=== PATIENT | male | born 1995 | race Caucasian/White ===

== ENCOUNTER → 2017-05-21 | Day surgery (SDC) | payer OTHER ==
[~2017-05-21] VITALS: Ht 182.9 cm; Wt 55.4 kg
[~2017-05-21] MED LIST: CHLORHEXIDINE GLUCONATE 2 % 1 PACK (2 CLOTHS) TOPICAL PRN; DO NOT ADM ANY ANTICOAGULANT DRUGS PRN; LACTATED RINGER'S 1000 ML IV PRN; LIDOCAINE HCL 1% PF 5 ML AMPULE OTHER ONE; METOPROLOL TARTRATE 25 MG TAB PO PRN; MIDAZOLAM HCL 2 MG/2 ML VIAL IV ONE; ONDANSETRON HCL 4 MG/2 ML VIAL IV PRN; PERC5TAB12 PO; POVIDONE IODINE 5% (ANTISEPSIS KIT) 4 APPLICATIONS EACH NARE PRN; PROPOFOL 200 MG/20 ML AMP IV ONE; SODIUM CHLORID 0.9% 500 ML IV PRN; ceFAZolin 1,000 MG/NS 100 ML IV SCH
--- NOTE | 2017-05-21 06:29 | RADRPT ---
EXAM DATE/TIME: 05/21/2017 06:20 [place] COMPARISON: No previous studies available for comparison. INDICATIONS : Preop lithotripsy. MEDICAL HISTORY : None. SURGICAL HISTORY : None. ENCOUNTER: Initial ACUITY: 1 day PAIN SCORE: 0/10 LOCATION: Bilateral abdomen FINDINGS: Supine view of the abdomen was performed. In the right upper quadrant there is a 12 x 9 mm calcific nodule renal stone versus gallstone. 7 x 2 mm calcification overlies lower pole the right kidney . T he abdominal bowel gas pattern is normal. No abnormal masses, or organomegaly is seen. The osseous structures are unremarkable. CONCLUSION: 2 right-sided calcifications as described above. Bowel gas pattern is unremarkable. David Casanova MD on May 21, 2017 at 6:26 Board Certified Radiologist. This report was verified electronically.
[2017-05-21 06:53] LABS: AUTOMATED NEUTROPHIL # 4.7 TH/MM3 (1.8-7.7); BASOPHIL # 0.1 TH/MM3 (0-0.2); BASOPHIL % 0.8 % (0.0-2.0); EOSINOPHIL # 0.1 TH/MM3 (0-0.4); EOSINOPHIL % 1.5 % (0.0-4.0); HEMATOCRIT 44.6 % (39.0-51.0); HEMO FLAGS DIFF FINAL; LYMPH % 34.7 % (9.0-44.0); LYMPHOCYTE # 2.9 TH/MM3 (1.0-4.8); MEAN CORPUSCULAR HEMOGLOBIN 30.3 PG (27.0-34.0); MEAN CORPUSCULAR HGB CONC 33.7 % (32.0-36.0); MONO % 6.9 % (0.0-8.0); NEUT % 56.1 % (16.0-70.0); PLATELET COUNT 209 TH/MM3 (150-450); RED BLOOD COUNT 4.95 MIL/MM3 (4.50-5.90); RED CELL DISTRIBUTION WIDTH 13.7 % (11.6-17.2); WHITE BLOOD COUNT 8.3 TH/MM3 (4.0-11.0)
--- NOTE | 2017-05-21 08:55 | PD.OP ---
Operative Report Date of Surgery: May 21, 2017 Preoperative Diagnosis: Right renal calculi Postoperative Diagnosis: Same Procedure: Right extracorporeal shockwave lithotripsy Anesthesia: TIVA Surgeon: Kyree Byrnes Dietitian Assistant(s): None Resident Surgeon: None Operation and Findings: 21 year-old male with history of right sided renal calculi. Patient found to have 2 large stones within the right kidney one measuring up to 1 cm in size. The other stone was found to be approximately 1.5 cm in size. This stone was located in the lower pole and was only partially visualized on x-ray. Risk and benefits were discussed with both the patient and his mother at the bedside preoperatively and they were willing to proceed. Patient is brought to the operating room and identified by myself as Dustin Bowers. He was placed in the supine position on the operating table, received preprocedure antibiotics TIVA anesthesia was administered. The stone was localized under fluoroscopic and ultrasound imaging guidance. The 1 cm stone was initially treated which was located near the UPJ. Good fragmentation of the stone was visualized. The stone in the lower pole was then visualized and approximately 1500 shocks were then directed at this lower pole stone. Good fragmentation of the stone was also visualized. The patient tolerated the procedure well and was awoken and transferred to recovery in stable condition. He'll follow-up in a few weeks in the office and obtain a CT scan prior to his visit. Kyree Byrnes DO May 21, 2017 08:55
[2017-05-21 11:07] VITALS: BP 121/87; PULSE 55; RESP 20; TEMP 97.4; O2SAT 100
== END | disposition home or self-care (01) ==
LOC: HSDC 05:44
PROVIDERS: ATTEND Urology
DX: N20.0 Calculus of kidney (principal)
CPT/HCPCS: 00873; 50590; 74000; 85025; J0690; J2250; J3010; J7120

== ENCOUNTER 2017-05-27 00:33 | Inpatient (IN) | payer OTHER ==
[~2017-05-27] VITALS: Ht 180.3 cm; Wt 55.1 kg
[2017-05-27] VITALS: BP 121/74; PULSE 64; RESP 17; TEMP 97.8; O2SAT 99
[~2017-05-27 00:33] MED LIST changes: -CHLORHEXIDINE GLUCONATE 2 % 1 PACK (2 CLOTHS) TOPICAL PRN; -DO NOT ADM ANY ANTICOAGULANT DRUGS PRN; -LACTATED RINGER'S 1000 ML IV PRN; -LIDOCAINE HCL 1% PF 5 ML AMPULE OTHER ONE; -METOPROLOL TARTRATE 25 MG TAB PO PRN; -MIDAZOLAM HCL 2 MG/2 ML VIAL IV ONE; -ONDANSETRON HCL 4 MG/2 ML VIAL IV PRN; -POVIDONE IODINE 5% (ANTISEPSIS KIT) 4 APPLICATIONS EACH NARE PRN; -PROPOFOL 200 MG/20 ML AMP IV ONE; -SODIUM CHLORID 0.9% 500 ML IV PRN; -ceFAZolin 1,000 MG/NS 100 ML IV SCH
[2017-05-27] MEDS ORDERED: LACTULOSE SYRUP 20 GM/30 ML CUP PO PRN (01:30)
[2017-05-27] MEDS ORDERED: SENNOSIDES 8.6 MG TAB PO PRN (01:30)
[2017-05-27] MEDS ORDERED: ACETAMINOPHEN 325 MG TAB PO PRN (01:30)
[2017-05-27] MEDS ORDERED: SODIUM CHLORIDE 0.9% FLUSH 10 ML FLUSH IV FLUSH PRN (01:30)
[2017-05-27] MEDS ORDERED: MAGNESIUM HYDROXIDE SUSP 30 ML CUP PO PRN (01:30)
[2017-05-27] MEDS ORDERED: NALOXONE HCL 0.4 MG/ML AMP IV PUSH PRN (01:30)
[2017-05-27] MEDS ORDERED: BISACODYL 10 MG SUPP RECTAL PRN (01:30)
[2017-05-27] MEDS ORDERED: MORPHINE SULFATE 2 MG/ML INJ IV PUSH PRN (01:30)
[2017-05-27] MEDS: ONDANSETRON HCL 4 MG/2 ML VIAL IVP PRN ×4 (01:43→20:57)
[2017-05-27] MEDS: SODIUM CHLOR 0.45% 1000 ML INJ 1,000 ML IV SCH ×2 (01:49→14:37)
--- NOTE | 2017-05-27 04:08 | HHI.HP ---
[facility] Primary Care Physician Quinten Dodson M.D. Admission Diagnosis Diagnoses: Travel History International Travel<30 Days: No Contact w/Intl Traveler <30 Da: No Traveled to Known Affected Are: No History of Present Illness 21-year-old male with a past medical history significant for lithotripsy with Dr. Byrnes 6 days ago presents to the emergency department for evaluation of nausea, vomiting and abdominal and right flank pain. The patient states that since his lithotripsy he has had intractable nausea/vomiting that has been unresponsive to Zofran. He was prescribed Percocet for his pain however has not been able to keep any of his pain medication down. He denies any fever/ chills. He continues to endorse burning with urination. CT of the abdomen/ pelvis revealed right-sided hydronephrosis with a 2 cm stone in the distal right ureter. The right ureter is dilated down to the ureterovesical junction. There is a dominant elongated calcification in the distal right ureter measuring 2.2 cm. Patient has a leukocytosis of 13.8. Creatinine 1.80, total bilirubin 4.3. Review of Systems Denies fever or chills Denies blurry vision, otorrhea, rhinorrhea Denies sore throat and cough No chest pain, palpitations, shortness of breath No abdominal pain Positive right flank pain Nausea/vomiting. Denies diarrhea or constipation. Denies muscle pain/weakness No rashes Past Family Social History Past Medical History History of nephrolithiasis Past Surgical History Lithotripsy Reported Medications Reported Meds & Active Scripts Active Percocet (Oxycodone-Acetaminophen) 5-325 mg Tab 1-2 Tab PO Q6H PRN Allergies: Coded Allergies: No Known Allergies (Unverified Allergy, Unknown, 05/21/17) Family History No family history of diabetes or coronary artery disease. Social History Quit smoking on Friday. Smoked for approximately 9 years as much as 1 pack per day. Denies alcohol. Positive marijuana. Denies other illicit drugs. Physical Exam Vital Signs Vital Signs Date Time Temp Pulse Resp B/P (MAP) Pulse Ox O2 Delivery O2 Flow Rate FiO2 05/27/17 01:50 20 05/27/17 00:00 97.8 64 17 121/74 90 99 Physical Exam GENERAL: male lying in bed SKIN: No rashes, ecchymoses or lesions. Cool and dry. HEAD: Atraumatic. Normocephalic. No temporal or scalp tenderness. EYES: Pupils equal round and reactive. Extraocular motions intact. No scleral icterus. No injection or drainage. ENT: Nose without bleeding, purulent drainage or septal hematoma. Throat without erythema, tonsillar hypertrophy or exudate. Uvula midline. Airway patent. NECK: Trachea midline. No JVD or lymphadenopathy. Supple, nontender, no meningeal signs. CARDIOVASCULAR: Regular rate and rhythm without murmurs, gallops, or rubs. RESPIRATORY: Clear to auscultation. Breath sounds equal bilaterally. No wheezes , rales, or rhonchi. GASTROINTESTINAL: Abdomen soft, non-tender, nondistended. No hepato-splenomegaly , or palpable masses. No guarding. : Positive right CVA tenderness MUSCULOSKELETAL: Extremities without clubbing, cyanosis, or edema. No joint tenderness, effusion, or edema noted. No calf tenderness. Negative Homans sign bilaterally. NEUROLOGICAL: Awake and alert. Cranial nerves II through XII intact. Motor and sensory grossly within normal limits. Normal speech. Caprini VTE Risk Assessment Caprini VTE Risk Assessment: No/Low Risk (score <= 1) Caprini Risk Assessment Model Point Value = 1 Point Value = 2 Point Value = 3 Point Value = 5 Age 41-60 Minor surgery BMI > 25 kg/m2 Swollen legs Varicose veins or History of unexplained or recurrent spontaneous Oral contraceptives or hormone replacement Sepsis (< 1 month) Serious lung disease, including pneumonia (< 1 month) Abnormal pulmonary function Acute myocardial infarction Congestive heart failure (< 1 month) History of inflammatory bowel disease Medical patient at bed rest Age 61-74 Arthroscopic surgery Major open surgery (> 45 min) Laparoscopic surgery (> 45 min) Malignancy Confined to bed (> 72 hours) Immobilizing plaster cast Central venous access Age >= 75 History of VTE Family history of VTE Factor V Leiden Prothrombin [id number] Lupus anticoagulant Anticardiolipin antibodies Elevated serum homocysteine Heparin-induced thrombocytopenia Other congenital or acquired thrombophilia Stroke (< 1 month) Elective arthroplasty Hip, pelvis, or leg fracture Acute spinal cord injury (< 1 month) Prophylaxis Regimen Total Risk Factor Score Risk Level Prophylaxis Regimen 0-1 Low Early ambulation 2 Moderate Order ONE of the following: *Sequential Compression Device (SCD) *Heparin 5000 units SQ BID 3-4 Higher Order ONE of the following medications: *Heparin 5000 units SQ TID *Enoxaparin/Lovenox 40 mg SQ daily (WT < 150 kg, CrCl > 30 mL/min) *Enoxaparin/Lovenox 30 mg SQ daily (WT < 150 kg, CrCl > 10-29 mL/min) *Enoxaparin/Lovenox 30 mg SQ BID (WT < 150 kg, CrCl > 30 mL/min) AND/OR *Sequential Compression Device (SCD) 5 or more Highest Order ONE of the following medications: *Heparin 5000 units SQ TID (Preferred with Epidurals) *Enoxaparin/Lovenox 40 mg SQ daily (WT < 150 kg, CrCl > 30 mL/min) *Enoxaparin/Lovenox 30 mg SQ daily (WT < 150 kg, CrCl > 10-29 mL/min) *Enoxaparin/Lovenox 30 mg SQ BID (WT < 150 kg, CrCl > 30 mL/min) AND *Sequential Compression Device (SCD) Assessment and Plan Assessment and Plan 21-year-old male status post lithotripsy 6 days ago presents with intractable nausea/vomiting, right hydronephrosis with dilated right ureter. 1. Intractable nausea/vomiting Currently controlled with IV Zofran 2. Hydronephrosis secondary to ureter obstruction Pain control with IV Morphine Urology consulted, appreciate assistance Dr. Rocha to see patient for probable stenting later today 3. MEG Creatinine 1.80, no baseline labs for comparison IV fluid hydration Monitor am BMP FEN NPO NS at 75 cc/hr SCDs Physician Certification 2 Midnight Certification Type: Admission for Inpatient Services Order for Inpatient Services The services are ordered in accordance with Medicare regulations or non- Medicare payer requirements, as applicable. In the case of services not specified as inpatient-only, they are appropriately provided as inpatient services in accordance with the 2-midnight benchmark. Estimated LOS (days): 2 2 days is the estimated time the patient will need to remain in the hospital, assuming treatment plan goals are met and no additional complications. Post-Hospital Plan: Not yet determined Celina Prather MD May 27, 2017 04:08
[2017-05-27 04:25] LABS: AUTOMATED NEUTROPHIL # 7.6 TH/MM3 (1.8-7.7); BASOPHIL % 0.2 % (0.0-2.0); EOSINOPHIL % 0.3 % (0.0-4.0); HEMATOCRIT 36.6 % (39.0-51.0); HEMO FLAGS DIFF FINAL; LYMPH % 21.5 % (9.0-44.0); LYMPHOCYTE # 2.5 TH/MM3 (1.0-4.8); MEAN CELL VOLUME 86.5 FL (80.0-100.0); MEAN CORPUSCULAR HEMOGLOBIN 30.2 PG (27.0-34.0); MONO % 12.8 % (0.0-8.0); NEUT % 65.2 % (16.0-70.0); PLATELET COUNT 181 TH/MM3 (150-450); RED BLOOD COUNT 4.23 MIL/MM3 (4.50-5.90); RED CELL DISTRIBUTION WIDTH 13.2 % (11.6-17.2); WHITE BLOOD COUNT 11.6 TH/MM3 (4.0-11.0)
[2017-05-27 04:47] LABS: ALT (GPT) 11 U/L (12-78); ANION GAP 11 MEQ/L (5-15); AST (GOT) 10 U/L (15-37); BICARBONATE 24.9 MEQ/L (21.0-32.0); BLOOD UREA NITROGEN 18 MG/DL (7-18); CHLORIDE 101 MEQ/L (98-107); GLOMERULAR FILTRATION RATE 61 ML/MIN (>89); POTASSIUM 3.4 MEQ/L (3.5-5.1); SODIUM (NA) 137 MEQ/L (136-145)
[2017-05-27 04:49] LABS: ALKALINE PHOSPHATASE 51 U/L (45-117); TOTAL BILIRUBIN ADULT 3.2 MG/DL (0.2-1.0)
[2017-05-27] MEDS: SODIUM CHLORIDE 0.9% FLUSH 10 ML FLUSH IV FLUSH SCH ×2 (07:55→20:57)
[2017-05-27] MEDS: DOCUSATE SODIUM 50 MG/SENNA 8.6 MG TAB PO SCH ×2 (07:55→20:58)
[2017-05-27 08:00] VITALS: BP 111/68; PULSE 60; RESP 16; TEMP 97.7; O2SAT 98
[2017-05-27 12:00] VITALS: BP 113/70; PULSE 63; RESP 17; TEMP 97.1; O2SAT 98
[2017-05-27] MEDS ORDERED: POTASSIUM CHLORIDE 20 MEQ CONTROLLED RELEASE TAB PO ONE (14:45)
--- NOTE | 2017-05-27 14:45 | HHI.PR ---
Addendum to Inpatient Note Addendum Reason: Additional Documentation Additional Information Deferred entry, the patient seen earlier at 10:30 AM. The patient states that he feels better, nausea has improved. Is complaining of abdominal pain and right flank pain. Denies any fevers or chills. Patient is awake and oriented 3, nonacute distress. Lungs are clear to auscultation. There is diffuse abdominal pain especially in the mesogastric region, abdomen is soft, bowel sounds present and there is a presence of right flank pain. There is no edema in lower extremities. Continue supportive therapy for intractable nausea and vomiting which seems to be improving. Hydronephrosis secondary to ureteral obstruction, urology consulted. As per documentation the following day to see the patient for probable stenting later today. Patient also with acute kidney injury with a creatinine admission 1.8, trending down to 1.46. Continue to monitor BUN/creatinine, strict I's and O's. Patient has mild hypokalemia likely secondary to decreased oral intake, nausea and vomiting. Replace orally. Sav Garay MD May 27, 2017 14:45
[2017-05-27 16:00] VITALS: BP 117/65; PULSE 58; RESP 18; TEMP 98.9; O2SAT 99
--- NOTE | 2017-05-27 19:36 | PD.CONS ---
HPI Service Urology Consult Requested By Reason for Consult Nephrolithiasis, [place], N/V Primary Care Physician Quinten Dodson M.D. Diagnosis: History of Present Illness 21yo male with history of nephrolithiasis seen in consultation for right flank pain and persistent N/V. Patient underwent a right ESWL last week with Dr. Byrnes. Patient has had persistent nausea and vomiting shortly after the procedure with progressively worsening right flank pain. He reported to the [place] ED where significant right hydronephrosis with stones noted in the right distal ureter was identified. He was admitted to [facility] and started on IV fluids and pain control. His pain has improved and Cr improved. However he continues to report N/V. No fevers. Review of Systems ROS Limitations: Clinical Condition Constitutional: DENIES: Fever Endocrine: DENIES: Polydipsia Eyes: DENIES: Blurred vision Ears, nose, mouth, throat: DENIES: Tinnitus, Hearing loss Respiratory: DENIES: Apneas, Cough Cardiovascular: DENIES: Chest pain Gastrointestinal: COMPLAINS OF: Abdominal pain, Nausea, Vomiting Genitourinary: DENIES: Urinary frequency, Dysuria Musculoskeletal: DENIES: Joint pain Integumentary: DENIES: Abnormal pigmentation Hematologic/lymphatic: DENIES: Bruising Immunologic/allergic: DENIES: Eczema Neurologic: DENIES: Headache Psychiatric: DENIES: Anxiety Except as stated in HPI: all other systems reviewed are Neg Past Family Social History Past Medical History Nephrolithiasis Past Surgical History Lithotripsy Reported Medications Reported Meds & Active Scripts Active Percocet (Oxycodone-Acetaminophen) 5-325 mg Tab 1-2 Tab PO Q6H PRN Allergies: Coded Allergies: No Known Allergies (Unverified Allergy, Unknown, 05/21/17) Active Ordered Medications Current Medications Medications (Trade) Dose Ordered Sig/Jessie Route Start Time Stop Time Status Last Admin Sodium Chloride 1,000 ml @ 75 mls/hr [id number] IV 05/27/17 01:30 05/27/17 14:37 (NS Flush) 2 ml UNSCH PRN IV FLUSH 05/27/17 01:30 (NS Flush) 2 ml BID IV FLUSH 05/27/17 09:00 05/27/17 07:55 (Tylenol) 650 mg Q4H PRN PO 05/27/17 01:30 (Zofran Inj) 4 mg Q6H PRN IVP 05/27/17 01:30 05/27/17 14:36 (Narcan Inj) 0.4 mg UNSCH PRN IV PUSH 05/27/17 01:30 (Anu-Colace) 1 tab BID PO 05/27/17 09:00 (Milk Of Magnesia Liq) 30 ml Q12H PRN PO 05/27/17 01:30 (Senokot) 17.2 mg Q12H PRN PO 05/27/17 01:30 (Dulcolax Supp) 10 mg DAILY PRN RECTAL 05/27/17 01:30 (Lactulose Liq) 30 ml DAILY PRN PO 05/27/17 01:30 (Morphine Inj) 2 mg Q3H PRN IV PUSH 05/27/17 01:30 05/27/17 01:43 Family History Family history reviewed and noncontributory to present illness. No family history of diabetes or coronary artery disease. Social History Quit smoking on Friday. Smoked for approximately 9 years as much as 1 pack per day. Denies alcohol. Positive marijuana. Denies other illicit drugs. Physical Exam Vital Signs Date Time Temp Pulse Resp B/P (MAP) Pulse Ox O2 Delivery O2 Flow Rate FiO2 05/27/17 16:00 98.9 58 18 117/65 (82) 99 05/27/17 12:00 97.1 63 17 113/70 (84) 98 05/27/17 08:00 97.7 60 16 111/68 (82) 98 05/27/17 01:50 20 05/27/17 00:00 97.8 64 17 121/74 (90) 99 Physical Exam GENERAL: This is a well-nourished, well-developed patient, in no apparent distress. SKIN: No rashes, ecchymoses or lesions. Cool and dry. HEAD: Atraumatic. Normocephalic.. EYES: Extraocular motions intact. No scleral icterus. No injection or drainage. ENT: Nose without bleeding, purulent drainage. Airway patent. NECK: Trachea midline. CARDIOVASCULAR: Normal pulses. RESPIRATORY: Nonlabored, equal chest rise GASTROINTESTINAL: Abdomen soft, nondistended. MUSCULOSKELETAL: Extremities without clubbing, cyanosis, or edema. NEUROLOGICAL: Awake and alert Motor and sensory grossly within normal limits.. Normal speech. Lab results reviewed: Yes Laboratory Tests Test 05/27/17 03:50 White Blood Count 11.6 Red Blood Count 4.23 Hemoglobin 12.8 Hematocrit 36.6 Mean Corpuscular Volume 86.5 Mean Corpuscular Hemoglobin 30.2 Mean Corpuscular Hemoglobin Concent 35.0 Red Cell Distribution Width 13.2 Platelet Count 181 Mean Platelet Volume 8.4 Neutrophils (%) (Auto) 65.2 Lymphocytes (%) (Auto) 21.5 Monocytes (%) (Auto) 12.8 Eosinophils (%) (Auto) 0.3 Basophils (%) (Auto) 0.2 Neutrophils # (Auto) 7.6 Lymphocytes # (Auto) 2.5 Monocytes # (Auto) 1.5 Eosinophils # (Auto) 0.0 Basophils # (Auto) 0.0 CBC Comment DIFF FINAL Differential Comment Blood Urea Nitrogen 18 Creatinine 1.46 Random Glucose 86 Total Protein 6.7 Albumin 3.5 Calcium Level 8.6 Alkaline Phosphatase 51 Aspartate Amino Transf (AST/SGOT) 10 Alanine Aminotransferase (ALT/SGPT) 11 Total Bilirubin 3.2 Sodium Level 137 Potassium Level 3.4 Chloride Level 101 Carbon Dioxide Level 24.9 Anion Gap 11 Estimat Glomerular Filtration Rate 61 Result Diagram: 05/27/17 0350 05/27/17 0350 Personally reviewed images: Yes Imaging CT scan from [place] ED 05/26/17: Significant right hydronephrosis with stones noted along the right distal ureter Assessment and Plan Problem List: (1) Nephrolithiasis ICD Code: N20.0 - Calculus of kidney Assessment and Plan -Given imaging findings and persistent N/V, patient would benefit from intervention -We discussed right ureteral stent placement, the risks and benefits of the stent, and the importance of followup for stent removal and further treatment of his remaining stone burden with Dr. Byrnes after resolution of this acute stone episode -Patient understands and agrees -NPO at midnight -Plan for cystoscopy, right ureteral stent placement tomorrow Isreal Rocha MD May 27, 2017 19:35
[2017-05-27 20:00] VITALS: BP 133/81; PULSE 56; RESP 17; TEMP 97.7; O2SAT 96
[2017-05-28] VITALS: BP 115/75; PULSE 59; RESP 17; TEMP 97.8; O2SAT 98
[2017-05-28] MEDS ORDERED: LACTATED RINGER'S 1000 ML IV PRN (04:00)
[2017-05-28] MEDS: SODIUM CHLOR 0.45% 1000 ML INJ 1,000 ML IV SCH ×2 (05:34→15:58)
[2017-05-28 08:00] VITALS: BP 128/78; PULSE 58; RESP 17; TEMP 99.1; O2SAT 99
[2017-05-28] MEDS: DOCUSATE SODIUM 50 MG/SENNA 8.6 MG TAB PO SCH (08:38)
[2017-05-28] MEDS: SODIUM CHLORIDE 0.9% FLUSH 10 ML FLUSH IV FLUSH SCH (08:39)
--- NOTE | 2017-05-28 10:32 | HHI.PR ---
Subjective Remarks 21-year-old male with a past medical history significant for lithotripsy with Dr. Byrnes 6 days ago presents to the emergency department for evaluation of nausea, vomiting and abdominal and right flank pain. The patient states that since his lithotripsy he has had intractable nausea/vomiting that has been unresponsive to Zofran. He was prescribed Percocet for his pain however has not been able to keep any of his pain medication down. He denies any fever/ chills. He continues to endorse burning with urination. CT of the abdomen/ pelvis revealed right-sided hydronephrosis with a 2 cm stone in the distal right ureter. The right ureter is dilated down to the ureterovesical junction. There is a dominant elongated calcification in the distal right ureter measuring 2.2 cm. Patient has a leukocytosis of 13.8. Creatinine 1.80, total bilirubin 4.3. 11-22 FOR UROLOGY STENT TODAY POSSIBLE HOME TODAY OR TOMORROW DW RN AND PT Objective Vitals Vital Signs Date Time Temp Pulse Resp B/P (MAP) Pulse Ox O2 Delivery O2 Flow Rate FiO2 05/28/17 08:00 99.1 58 17 128/78 (95) 99 05/28/17 00:00 97.8 59 17 115/75 (88) 98 05/27/17 20:00 97.7 56 17 133/81 (98) 96 05/27/17 16:00 98.9 58 18 117/65 (82) 99 05/27/17 12:00 97.1 63 17 113/70 (84) 98 I/O 05/27/17 05/27/17 05/27/17 05/28/17 05/28/17 05/28/17 07:00 15:00 23:00 07:00 15:00 23:00 Intake Total 240 ml 60 ml 1240 ml Output Total 600 ml 500 ml Balance 240 ml -540 ml 740 ml Intake Oral 240 ml 60 ml 240 ml IV Total 1000 ml Output Urine Total 600 ml 500 ml # Voids 1 2 # Bowel Movements 0 Result Diagram: 05/27/17 0350 05/27/17 0350 Other Results Laboratory Tests Test 05/27/17 03:50 White Blood Count 11.6 TH/MM3 Red Blood Count 4.23 MIL/MM3 Hemoglobin 12.8 GM/DL Hematocrit 36.6 % Mean Corpuscular Volume 86.5 FL Mean Corpuscular Hemoglobin 30.2 PG Mean Corpuscular Hemoglobin Concent 35.0 % Red Cell Distribution Width 13.2 % Platelet Count 181 TH/MM3 Mean Platelet Volume 8.4 FL Neutrophils (%) (Auto) 65.2 % Lymphocytes (%) (Auto) 21.5 % Monocytes (%) (Auto) 12.8 % Eosinophils (%) (Auto) 0.3 % Basophils (%) (Auto) 0.2 % Neutrophils # (Auto) 7.6 TH/MM3 Lymphocytes # (Auto) 2.5 TH/MM3 Monocytes # (Auto) 1.5 TH/MM3 Eosinophils # (Auto) 0.0 TH/MM3 Basophils # (Auto) 0.0 TH/MM3 CBC Comment DIFF FINAL Differential Comment Blood Urea Nitrogen 18 MG/DL Creatinine 1.46 MG/DL Random Glucose 86 MG/DL Total Protein 6.7 GM/DL Albumin 3.5 GM/DL Calcium Level 8.6 MG/DL Alkaline Phosphatase 51 U/L Aspartate Amino Transf (AST/SGOT) 10 U/L Alanine Aminotransferase (ALT/SGPT) 11 U/L Total Bilirubin 3.2 MG/DL Sodium Level 137 MEQ/L Potassium Level 3.4 MEQ/L Chloride Level 101 MEQ/L Carbon Dioxide Level 24.9 MEQ/L Anion Gap 11 MEQ/L Estimat Glomerular Filtration Rate 61 ML/MIN Objective Remarks GENERAL: AWAKE ALERT AND ORIENTED X3 TALKATIVE AND COOPERATIVE STATES HUNGRY SKIN: Warm and dry. HEAD: Atraumatic. Normocephalic. EYES: Pupils equal and round. No scleral icterus. No injection or drainage. EOMI ENT: No nasal bleeding or discharge. Mucous membranes pink and moist. TONGUE MIDLINE NECK: Trachea midline. No JVD. SUPPLE CARDIOVASCULAR: Regular rate and rhythm. S1, S2 NO S3 OR S4 NO HEAVE OR THRILL RESPIRATORY: No accessory muscle use. Clear to auscultation. Breath sounds equal bilaterally. GASTROINTESTINAL: Abdomen soft, non-tender, nondistended. Hepatic and splenic margins not palpable. MUSCULOSKELETAL: Extremities without clubbing, cyanosis, or edema. No obvious deformities. NEUROLOGICAL: Awake and alert. No obvious cranial nerve deficits. Motor grossly within normal limits. Five out of 5 muscle strength in the arms and legs. Normal speech. PSYCHIATRIC: Appropriate mood and affect; insight and judgment normal. Medications and IVs Current Medications Sodium Chloride 1,000 ml @ 75 mls/hr [id number] IV Last administered on 05:34; Start 05/27/17 at 01:30 Sodium Chloride (NS Flush) 2 ml UNSCH PRN IV FLUSH FLUSH AFTER USING IV ACCESS ; Start 05/27/17 at 01:30 Sodium Chloride (NS Flush) 2 ml BID IV FLUSH Last administered on 05/27/17 07 :55; Start 05/27/17 at 09:00 Acetaminophen (Tylenol) 650 mg Q4H PRN PO TEMP > 100.4; Start 05/27/17 at 01: 30 Ondansetron HCl (Zofran Inj) 4 mg Q6H PRN IVP NAUSEA OR VOMITING Last administered on 05/27/17 20:57; Start 05/27/17 at 01:30 Naloxone HCl (Narcan Inj) 0.4 mg UNSCH PRN IV PUSH SEE LABEL COMMENTS; Start 05/27/17 at 01:30 Senna/Docusate Sodium (Anu-Colace) 1 tab BID PO ; Start 05/27/17 at 09:00 Magnesium Hydroxide (Milk Of Magnesia Liq) 30 ml Q12H PRN PO Mild constipation ; Start 05/27/17 at 01:30 Sennosides (Senokot) 17.2 mg Q12H PRN PO Moderate constipation; Start at 01:30 Bisacodyl (Dulcolax Supp) 10 mg DAILY PRN RECTAL SEVERE CONSITIPATION; Start 05/27/17 at 01:30 Lactulose (Lactulose Liq) 30 ml DAILY PRN PO SEVERE CONSITIPATION; Start 05/27 at 01:30 Morphine Sulfate (Morphine Inj) 2 mg Q3H PRN IV PUSH Pain 6-10 Last administered on 05/27/17 01:43; Start 05/27/17 at 01:30 Potassium Chloride (KCl) 20 meq ONCE ONCE PO Last administered on 05/27/17 15:28; Start 05/27/17 at 14:45; Stop 05/27/17 at 14:55; Status DC Lactated Ringer's 1,000 ml @ 30 mls/hr Q24H PRN IV SEE LABEL COMMENTS; Start 05/28/17 at 04:00; Stop 05/31/17 at 03:59 A/P Assessment and Plan 21-year-old male status post lithotripsy 6 days ago presents with intractable nausea/vomiting, right hydronephrosis with dilated right ureter. 1. Intractable nausea/vomiting Currently controlled with IV Zofran 2. Hydronephrosis secondary to ureter obstruction Pain control with IV Morphine Urology consulted, appreciate assistance Dr. Rocha --SAW patient for probable stenting later today 3. MEG Creatinine 1.80, no baseline labs for comparison IV fluid hydration Monitor am BMP FEN NPO NS at 75 cc/hr SCDs FOR STENTING TODAY WITH UROLOGY ON THE RIGHT POSSIBLY DC TO HOME LATER IF CLEARED BY UROLOGY Discharge Planning DC HOME IF CLEARED BY UROLOGY Damian Edmondson DO May 28, 2017 10:32
--- NOTE | 2017-05-28 10:41 | HHI.DS ---
Discharge Summary Admission Date May 27, 2017 at 00:43 Discharge Date: May 28, 2017 Admitting Diagnosis RIGHT NEPHROLITHIASIS (1) Nephrolithiasis ICD Code: N20.0 - Calculus of kidney Diagnosis: Principal Procedures STENT PLACEMENT WITH UROLOGY TODAY Brief History - From Admission 21-year-old male with a past medical history significant for lithotripsy with Dr. Byrnes 6 days ago presents to the emergency department for evaluation of nausea, vomiting and abdominal and right flank pain. The patient states that since his lithotripsy he has had intractable nausea/vomiting that has been unresponsive to Zofran. He was prescribed Percocet for his pain however has not been able to keep any of his pain medication down. He denies any fever/ chills. He continues to endorse burning with urination. CT of the abdomen/ pelvis revealed right-sided hydronephrosis with a 2 cm stone in the distal right ureter. The right ureter is dilated down to the ureterovesical junction. There is a dominant elongated calcification in the distal right ureter measuring 2.2 cm. Patient has a leukocytosis of 13.8. Creatinine 1.80, total bilirubin 4.3. CBC/BMP: 05/27/17 0350 05/27/17 0350 Significant Findings Laboratory Tests Test 05/27/17 03:50 White Blood Count 11.6 TH/MM3 (4.0-11.0) Red Blood Count 4.23 MIL/MM3 (4.50-5.90) Hemoglobin 12.8 GM/DL (13.0-17.0) Hematocrit 36.6 % (39.0-51.0) Monocytes (%) (Auto) 12.8 % (0.0-8.0) Monocytes # (Auto) 1.5 TH/MM3 (0-0.9) Creatinine 1.46 MG/DL (0.60-1.30) Aspartate Amino Transf (AST/SGOT) 10 U/L (15-37) Alanine Aminotransferase (ALT/SGPT) 11 U/L (12-78) Total Bilirubin 3.2 MG/DL (0.2-1.0) Potassium Level 3.4 MEQ/L (3.5-5.1) Estimat Glomerular Filtration Rate 61 ML/MIN (>89) PE at Discharge GENERAL: AWAKE ALERT AND ORIENTED X3 TALKATIVE AND COOPERATIVE STATES HUNGRY SKIN: Warm and dry. HEAD: Atraumatic. Normocephalic. EYES: Pupils equal and round. No scleral icterus. No injection or drainage. EOMI ENT: No nasal bleeding or discharge. Mucous membranes pink and moist. TONGUE MIDLINE NECK: Trachea midline. No JVD. SUPPLE CARDIOVASCULAR: Regular rate and rhythm. S1, S2 NO S3 OR S4 NO HEAVE OR THRILL RESPIRATORY: No accessory muscle use. Clear to auscultation. Breath sounds equal bilaterally. GASTROINTESTINAL: Abdomen soft, non-tender, nondistended. Hepatic and splenic margins not palpable. MUSCULOSKELETAL: Extremities without clubbing, cyanosis, or edema. No obvious deformities. NEUROLOGICAL: Awake and alert. No obvious cranial nerve deficits. Motor grossly within normal limits. Five out of 5 muscle strength in the arms and legs. Normal speech. PSYCHIATRIC: Appropriate mood and affect; insight and judgment normal. Hospital Course 21-year-old male with a past medical history significant for lithotripsy with Dr. Byrnes 6 days ago presents to the emergency department for evaluation of nausea, vomiting and abdominal and right flank pain. The patient states that since his lithotripsy he has had intractable nausea/vomiting that has been unresponsive to Zofran. He was prescribed Percocet for his pain however has not been able to keep any of his pain medication down. He denies any fever/ chills. He continues to endorse burning with urination. CT of the abdomen/ pelvis revealed right-sided hydronephrosis with a 2 cm stone in the distal right ureter. The right ureter is dilated down to the ureterovesical junction. There is a dominant elongated calcification in the distal right ureter measuring 2.2 cm. Patient has a leukocytosis of 13.8. Creatinine 1.80, total bilirubin 4.3. 11-22 FOR UROLOGY STENT TODAY POSSIBLE HOME TODAY OR TOMORROW [facility] RN AND PT IF CLEARED BY UROLOGY DC TO HOME LATER TODAY Pt Condition on Discharge: Good Discharge Disposition: Discharge Home Discharge Time: > 30 minutes Discharge Instructions DIET: Follow Instructions for: As Tolerated, No Restrictions Speech Therapy-Diet Recommends: Regular Activities you can perform: Regular-No Restrictions Follow up Referrals: PCP Follow-up - 1 Week Urology - 1 Week with Isreal Rocha MD New Medications: Ciprofloxacin (Cipro) 500 Mg Tab 500 MG PO BID for Infection, #14 TAB 0 Refills Docusate Sodium (Colace) 100 Mg Capsule 1 CAP PO TID PRN for CONSTIPATION, #90 CAP Ondansetron Odt (Zofran Odt) 8 Mg Tab 8 MG SL Q8H PRN for NAUSEA OR VOMITING, #20 TAB 0 Refills Tamsulosin (Flomax) 0.4 Mg Cap 0.4 MG PO HS for Manage Prostate Problems, #30 CAP 0 Refills Continued Medications: Oxycodone-Acetaminophen (Percocet) 5-325 mg Tab 1-2 TAB PO Q6H PRN for PAIN, #30 TAB 0 Refills (This prescription has been renewed) Damian Edmondson DO May 28, 2017 10:41
[2017-05-28] MEDS ORDERED: COLA100C5 PO (10:46)
[2017-05-28] MEDS ORDERED: PERC5TAB12 PO (10:46)
[2017-05-28] MEDS ORDERED: ZOFR8TAB4 SL (10:46)
[2017-05-28] MEDS ORDERED: TAMS5CAP PO (10:47)
[2017-05-28] MEDS ORDERED: CIPR-9 PO (10:50)
[2017-05-28 12:00] VITALS: BP 127/75; PULSE 60; RESP 17; TEMP 98.8; O2SAT 100
[2017-05-28] MEDS ORDERED: ceFAZolin INJ 1,000 MG VIAL IV ONE (12:52)
--- NOTE | 2017-05-28 12:55 | HHI.PR ---
Subjective Patient symptoms today Successful right ureteral stent placement. -Patient clear for discharge from Urology standpoint with pain medication and flomax -Follow-up with Dr. Byrnes in clinic Objective Result Diagram: 05/27/17 0350 05/27/17 0350 Assessment and Plan Problem List: (1) Nephrolithiasis ICD Code: N20.0 - Calculus of kidney Isreal Rocha MD May 28, 2017 12:55
[2017-05-28] MEDS ORDERED: DO NOT ADM ANY ANTICOAGULANT DRUGS PRN (13:30)
--- NOTE | 2017-05-28 13:42 | MP ---
cc: CHESTER DE LA CRUZ MD DATE OF SURGERY 05/28/2017 PREOPERATIVE DIAGNOSIS Right side nephrolithiasis POSTOPERATIVE DIAGNOSIS Right side nephrolithiasis SURGEON Chester De La Cruz MD PROCEDURE PERFORMED 1. Cystostomy 2. Right ureteral stent placement PERTINENT FINDINGS Successful placement of a right 6 x 26 double-J ureteral stent. HISTORY OF PRESENT ILLNESS Dustin Bowers is a 21-year-old male with a history of nephrolithiasis who underwent ESWL by Dr. Byrnes one week ago. The patient developed significant nausea and vomiting which was unable to be resolved with significant right flank pain. The patient underwent CT scans identified significant right sided hydronephrosis and therefore presents now for right ureteral stent placement. PROCEDURE After proper informed consent was obtained, the patient was brought to the operating room and laid supine position on the operating room table. The patient was placed in supine position and prepped and draped in standard surgical fashion. After proctoscopy was completed, the rigid scope inserted through the urethra and into the bladder. Views of the mucosa revealed no evidence of abnormality or lesions. Upon entering the bladder, bilateral ureteral orifices were identified. He had significant erythema and edema noted along the right ureteral orifice. At this point, a wire was passed into the right collecting system into the right renal pelvis. A 6 x 26 double-J ureteral stent was successfully placed into the right calyx with a good curl in the renal pelvis as well as in the bladder. The patient's bladder was emptied and the scope was removed. The patient tolerated the procedure with no complications. DISPOSITION The patient discharged home to follow-up in the clinic with Dr. Byrnes for definitive stone management. Chester De La Cruz M.D. SML/DINAL /12:59 PM /1:29 PM
[2017-05-28 16:00] VITALS: BP 121/65; PULSE 62; RESP 18; TEMP 98.3; O2SAT 100
== END 2017-05-28 18:28 | disposition home or self-care (01) | DRG 694 ==
LOC: NEDDLT 00:33 → N07B 00:43
PROVIDERS: ADMIT Hospitalist; ATTEND Hospitalist
PROC: 0DJD8ZZ Inspection of Lower Intestinal Tract, Via Natural or Artificial Opening Endoscopic (ICD-10-PCS; 2017-05-28)
PROC: 0T768DZ Dilation of Right Ureter with Intraluminal Device, Via Natural or Artificial Opening Endoscopic (ICD-10-PCS; principal; 2017-05-28 10:45)
DX: N13.2 Hydronephrosis with renal and ureteral calculous obstruction (principal); N17.9 Acute kidney failure, unspecified; R11.2 Nausea with vomiting, unspecified; E87.6 Hypokalemia; Z87.891 Personal history of nicotine dependence
CPT/HCPCS: 74177; 80053; 81001; 82948; 83690; 85025; J0690; J1200; J1885; J2060; J2270; J2405; J2765; J7030; Q9967

== ENCOUNTER → 2017-07-14 | Outpatient (CLI) | payer OTHER ==
[~2017-07-14] MED LIST changes: +CIPR-9 PO; +COLA100C5 PO; +TAMS5CAP PO; +ZOFR8TAB4 SL
--- NOTE | 2017-07-14 15:51 | RADRPT ---
EXAM DATE/TIME: 07/14/2017 14:34 [facility] COMPARISON: CT ABDOMEN & PELVIS W CONTRAST, May 26, 2017, 20:44. INDICATIONS : Right renal calculi with stent. ORAL CONTRAST: No oral contrast ingested. RADIATION DOSE: 3.55 CTDIvol (mGy) MEDICAL HISTORY : Renal calculi. SURGICAL HISTORY : None. ENCOUNTER: Initial ACUITY: 1 day PAIN SCALE: 0/10 LOCATION: Right flank TECHNIQUE: Volumetric scanning of the abdomen and pelvis was performed. Using automated exposure control and ad justment of the mA and/or kV according to patient size, radiation dose was kept as low as reasonably achievable to obtain optimal diagnostic quality images. DICOM format image data is available electro nically for review and comparison. FINDINGS: LOWER LUNGS: The visualized lower lungs are clear. LIVER: Homogeneous density without lesion. There is no dilation of the biliary tree. No calcified gallston es. SPLEEN: Normal size without lesion. PANCREAS: Within normal limits. KIDNEYS: Interval placement of double-J ureteral stent in good position. No residual radiopaque renal calculi are demonstrated in the right kidney or ureter. Left kidney is unremarkable without evidence for hydr onephrosis or radiopaque renal calculi. ADRENAL GLANDS: Within normal limits. VASCULAR: There is no aortic aneurysm. BOWEL/MESENTERY: The stomach, small bowel, and colon demonstrate no acute abnormality. There is no free intraperitone al air or fluid. ABDOMINAL WALL: Within normal limits. RETROPERITONEUM: There is no lymphadenopathy. BLADDER: No evidence for radiopaque bladder calculi. REPRODUCTIVE: Within normal limits. INGUINAL: There is no lymphadenopathy or hernia. MUSCULOSKELETAL: Within normal limits for patient age. CONCLUSION: 1. Interval placement of double-J ureteral stent in good position with resolution of right sided hydr oureteronephrosis. No residual radiopaque renal or ureteral calculi. Tenzin Zheng MD on July 14, 2017 at 15:42 Board Certified Radiologist. This report was verified electronically.
== END ==
LOC: HRAD 12:51
PROVIDERS: ATTEND Urology
DX: N20.0 Calculus of kidney (principal)
CPT/HCPCS: 74176